=== PATIENT | female | born 1985 | race Native Hawaiian/Other Pacific Islander ===

== ENCOUNTER 2018-01-19 21:36 | Emergency (ER) | payer OTHER ==
[2018-01-20 04:39] LABS: HCG, SERUM QUANTITATIVE 76841 MIU/ML
== END 2018-01-20 05:08 | disposition home or self-care (01) ==
LOC: M ED 21:36
DX: O20.8 Other hemorrhage in early pregnancy (principal); O26.30 Retained intrauterine contraceptive device in pregnancy, unspecified trimester; Z3A.09 9 weeks gestation of pregnancy; Z79.899 Other long term (current) drug therapy
CPT/HCPCS: 76801

== ENCOUNTER 2018-01-24 06:07 | Emergency (ER) | payer OTHER ==
[2018-01-24 06:41] LABS: BASO % 0.3 % (0.0-1.0); EOS # 0.1 10^3/uL (0.0-0.50); EOS % 0.7 % (0.0-3.0); HEMATOCRIT 35.9 % (36.0-47.0); HEMOGLOBIN 12.8 g/dl (12.0-15.5); IMMATURE GRANULOCYTE % 0.3 % (0-3.0); LYMPH # 1.2 10^3/uL (1.5-4.5); LYMPH % 13.7 % (24.0-44.0); MEAN CORPUSCULAR HEMOGLOBIN 30.4 pg (27.0-33.0); MEAN CORPUSCULAR HGB CONC 35.7 g/dl (32.0-36.5); MEAN CORPUSCULAR VOLUME 85.3 fl (80.0-96.0); MONO # 0.8 10^3/uL (0.0-0.8); MONO % 8.8 % (0.0-5.0); NEUTROPHILS # 6.9 10^3/uL (1.8-7.7); NEUTROPHILS % 76.2 % (36.0-66.0); PLATELET COUNT, AUTOMATED 261 10^3/uL (150-450); RED BLOOD COUNT 4.21 10^6/uL (4.00-5.40); WHITE BLOOD COUNT 9.1 10^3/uL (4.0-10.0)
[2018-01-24 07:22] LABS: HCG, SERUM QUANTITATIVE 72114 MIU/ML
== END 2018-01-24 11:14 | disposition home or self-care (01) ==
LOC: M ED 06:07
DX: O20.0 Threatened abortion (principal); O99.011 Anemia complicating pregnancy, first trimester; O99.89 Other specified diseases and conditions complicating pregnancy, childbirth and the puerperium; R51 Headache; O20.8 Other hemorrhage in early pregnancy; O26.30 Retained intrauterine contraceptive device in pregnancy, unspecified trimester; Z3A.10 10 weeks gestation of pregnancy; O36.8310 Maternal care for abnormalities of the fetal heart rate or rhythm, first trimester, not applicable or unspecified; Z79.899 Other long term (current) drug therapy
CPT/HCPCS: 76801

== ENCOUNTER 2018-01-25 16:19 | Inpatient (IN) | payer OTHER ==
[2018-01-25] MEDS: DOXYCYCLINE HYCLATE 100 MG TAB PO ×2 (01:20→22:00)
[2018-01-25 16:59] LABS: BASO % 0.2 % (0.0-1.0); HEMATOCRIT 34.9 % (36.0-47.0); HEMOGLOBIN 12.6 g/dl (12.0-15.5); IMMATURE GRANULOCYTE % 0.4 % (0-3.0); LYMPH # 0.5 10^3/uL (1.5-4.5); LYMPH % 4.8 % (24.0-44.0); MEAN CORPUSCULAR HEMOGLOBIN 30.1 pg (27.0-33.0); MEAN CORPUSCULAR HGB CONC 36.1 g/dl (32.0-36.5); MEAN CORPUSCULAR VOLUME 83.3 fl (80.0-96.0); MONO # 0.3 10^3/uL (0.0-0.8); MONO % 2.6 % (0.0-5.0); NEUTROPHILS # 9.2 10^3/uL (1.8-7.7); PLATELET COUNT, AUTOMATED 197 10^3/uL (150-450); RED BLOOD COUNT 4.19 10^6/uL (4.00-5.40); RED CELL DISTRIBUTION WIDTH 11.8 % (11.5-14.5)
[2018-01-25 17:15] LABS: ANION GAP 13 MEQ/L (8-16); BLOOD UREA NITROGEN 5 MG/DL (7-18); CALCIUM LEVEL 8.6 MG/DL (8.5-10.1); CARBON DIOXIDE LEVEL 21 MEQ/L (21-32); CHLORIDE LEVEL 96 MEQ/L (98-107); CREATININE FOR GFR 0.81 MG/DL (0.55-1.30); GLOMERULAR FILTRATION RATE > 60.0 (>60); GLUCOSE, FASTING 107 MG/DL (70-100); POTASSIUM SERUM 3.3 MEQ/L (3.5-5.1); SODIUM LEVEL 130 MEQ/L (136-145)
[2018-01-25] MEDS: NS 1,000 ML IV (17:25)
[2018-01-25] MEDS: MORPHINE 4 MG/ML 1ML VIAL/SYRINGE (J2270) IV ×2 (17:25→20:01)
[2018-01-25] MEDS: METOCLOPRAMIDE INJ 10MG/2ML VIAL (J2765) IV (17:29)
[2018-01-25 17:57] LABS: BILIRUBIN, URINE MANUAL NEGATIVE (NEGATIVE); BLOOD URINE MANUAL RFX POSITIVE (NEGATIVE); GLUCOSE, URINE (UA) MANUAL NEGATIVE (NEGATIVE); KETONE, URINE MANUAL NEGATIVE (NEGATIVE); MICROSCOPIC INDICATED? RFX YES (NO); NITRITE, URINE MANUAL RFX NEGATIVE (NEGATIVE); PROTEIN, URINE MANUAL REFLEX 3+ mg/dL (NEGATIVE); SP GRAVITY,URINE MANUAL REFLEX 1.015 (1.002-1.035); UROBILINOGEN, URINE MANUAL NORMAL (NORMAL)
[2018-01-25 17:59] LABS: BACTERIA, URINE SMALL AMOUNT; RBC, URINE TNTC /hpf (0-3); SQUAMOUS EPITHELIAL CELL URINE MOD AMOUNT /hpf (SMALL AMT); WBC, URINE MAN RFX TNTC /hpf (0-3)
[2018-01-25 18:01] LABS: HYALINE CAST, URINE NONE SEEN /lpf (0-1); MICROSCOPIC EXAM PERFORMED; MUCUS, URINE SMALL AMOUNT (NEGATIVE)
[2018-01-25 18:03] LABS: ALBUMIN 3.2 GM/DL (3.2-5.2); ALBUMIN/GLOBULIN RATIO 0.67 (1.00-1.93); ALKALINE PHOSPHATASE 78 U/L (45-117); ALT/SGPT 33 U/L (12-78); AMYLASE 58 U/L (25-115); AST/SGOT 24 U/L (7-37); BILIRUBIN,DIRECT 0.2 MG/DL (0.0-0.2); BILIRUBIN,TOTAL 0.5 MG/DL (0.2-1.0); C REACTIVE PROTEIN QUANTITATIV 5.54 MG/DL (0.00-0.30); HCG, SERUM QUANTITATIVE 62424 MIU/ML; LIPASE 68 U/L (73-393)
[2018-01-25] MEDS: cefTRIAXone SOD 1 GM in D5W MINI-BAG PLUS 50 ML IV (19:30)
[2018-01-25] MEDS: ACETAMINOPHEN 325 MG TAB PO (20:01)
[2018-01-25] MEDS ORDERED: PROPOFOL 200 MG/20 ML VIAL As Ordered (21:56)
[2018-01-25] MEDS ORDERED: SUCCINYLCHOLINE 100 MG/5 ML SYRINGE (J0330) As Ordered (21:56)
[2018-01-25] MEDS ORDERED: ROCURONIUM BROMIDE 50 MG/5 ML VIAL As Ordered (21:57)
[2018-01-25] MEDS ORDERED: KETOROLAC 60 MG/2 ML VIAL (J1885) As Ordered (21:57)
[2018-01-25] MEDS ORDERED: dexameTHASONE 4 MG/ML 1ML VIAL (J1100) As Ordered (21:57)
[2018-01-25] MEDS ORDERED: DOXYCYCLINE HYCLATE 100 MG TAB As Ordered (21:57)
[2018-01-25] MEDS ORDERED: LIDOCAINE 2% INJ 100 MG/5 ML SDV (FOR ANES.) As Ordered (21:57)
[2018-01-25] MEDS ORDERED: ONDANSETRON 4MG/2ML VIAL (J2405) As Ordered (21:58)
[2018-01-25] MEDS ORDERED: METOCLOPRAMIDE INJ 10MG/2ML VIAL (J2765) As Ordered (21:58)
[2018-01-25] MEDS ORDERED: fentaNYL 100 MCG/2 ML INJECTION (J3010) As Ordered ×2 (21:58→22:53)
[2018-01-25] MEDS ORDERED: MIDAZOLAM INJ 2 MG/2 ML VIAL (J2250) As Ordered (21:59)
[2018-01-25] MEDS ORDERED: ONDANSETRON 4MG/2ML VIAL (J2405) IV ×2 (22:00→23:30)
[2018-01-25] MEDS ORDERED: DOCUSATE SODIUM 100 MG CAP PO (22:00)
[2018-01-25] MEDS: miSOPROStol 200 MCG TAB (S0191) As Ordered (23:12)
[2018-01-25] MEDS ORDERED: HYDROMORPHONE HCL 0.5 MG/ 0.5 ML SYRINGE (J1170 PER 1) IV (23:30)
[2018-01-25] MEDS ORDERED: PERCOCET 5MG/325MG TAB PO (23:30)
[2018-01-25] MEDS ORDERED: fentaNYL 100 MCG/2 ML INJECTION (J3010) IV (23:30)
[2018-01-25] MEDS ORDERED: MORPHINE 4 MG/ML 1ML VIAL/SYRINGE (J2270) IV (23:45)
[2018-01-25] MEDS ORDERED: IBUPROFEN 800 MG TAB PO (23:45)
[2018-01-25] MEDS ORDERED: DOXYCYCLINE HYCLATE 100 MG TAB PO (23:45)
[2018-01-26] MEDS: LR 1,000 ML IV ×4 (00:10→20:33)
[2018-01-26] MEDS: DOXYCYCLINE HYCLATE 100 MG TAB PO (01:20)
[2018-01-26] MEDS: CLINDAMYCIN 900 MG in APPROPRIATE DILUENT 1 EA IV ×3 (05:50→22:06)
[2018-01-26] MEDS: GENTAMICIN 400 MG in D5W 100 ML IV (07:03)
[2018-01-26 08:27] LABS: HEMATOCRIT 29.5 % (36.0-47.0); MEAN CORPUSCULAR HEMOGLOBIN 30.2 pg (27.0-33.0); MEAN CORPUSCULAR HGB CONC 35.6 g/dl (32.0-36.5); MEAN CORPUSCULAR VOLUME 84.8 fl (80.0-96.0); PLATELET COUNT, AUTOMATED 162 10^3/uL (150-450); RED BLOOD COUNT 3.48 10^6/uL (4.00-5.40); RED CELL DISTRIBUTION WIDTH 12.1 % (11.5-14.5)
[2018-01-26 08:31] LABS: HEMOGLOBIN 10.5 g/dl (12.0-15.5)
[2018-01-26 17:22] LABS: APPEARANCE, URINE HAZY (CLEAR); BACTERIA, URINE AUTO NEGATIVE (NEGATIVE); BILIRUBIN, URINE AUTO NEGATIVE (NEGATIVE); BLOOD, URINE BLOOD 3+ (NEGATIVE); COLOR, URINE YELLOW (YELLOW); GLUCOSE, URINE (UA) AUTO NEGATIVE (NEGATIVE); KETONE, URINE AUTO NEGATIVE (NEGATIVE); LEUKOCYTE ESTERASE, URINE AUTO TRACE (NEGATIVE); NITRITE, URINE AUTO NEGATIVE (NEGATIVE); PROTEIN, URINE AUTO NEGATIVE (NEGATIVE); RBC, URINE AUTO 45 /HPF (0-3); SPECIFIC GRAVITY URINE AUTO 1.006 (1.002-1.035); SQUAMOUS EPITHELIAL CELL UR AU 1 /HPF (0-6); TRANSITIONAL EPITHELIAL AUTO <1 /HPF; UROBILINOGEN, URINE AUTO 0.2 mg/dL (0.0-2.0); WBC, URINE AUTO 14 /HPF (0-3)
[2018-01-26 17:28] LABS: AMPHETAMINES URINE REFLEX NEGATIVE (NEGATIVE); BARBITURATES URINE REFLEX NEGATIVE (NEGATIVE); BENZODIAZEPINES URINE REFLEX NEGATIVE (NEGATIVE); CANNABINOIDS URINE REFLEX NEGATIVE (NEGATIVE); COCAINE METABOLITE URINE REFLE NEGATIVE (NEGATIVE); METHADONE URINE REFLEX NEGATIVE (NEGATIVE); OPIATES URINE REFLEX NEGATIVE (NEGATIVE); PHENCYCLIDINE URINE REFLEX NEGATIVE (NEGATIVE)
[2018-01-27] MEDS: CLINDAMYCIN 900 MG in APPROPRIATE DILUENT 1 EA IV ×3 (05:06→22:38)
[2018-01-27] MEDS ORDERED: diphenhydrAMINE INJ 50MG/ML VIAL (J1200) IV (06:45)
[2018-01-27] MEDS: GENTAMICIN 400 MG in D5W 100 ML IV (06:50)
[2018-01-27] MEDS: LR 1,000 ML IV ×3 (06:51→17:28)
[2018-01-27 07:32] LABS: HEMATOCRIT 26.1 % (36.0-47.0); HEMOGLOBIN 9.2 g/dl (12.0-15.5); MEAN CORPUSCULAR HEMOGLOBIN 30.5 pg (27.0-33.0); MEAN CORPUSCULAR HGB CONC 35.2 g/dl (32.0-36.5); MEAN CORPUSCULAR VOLUME 86.4 fl (80.0-96.0); PLATELET COUNT, AUTOMATED 168 10^3/uL (150-450); RED BLOOD COUNT 3.02 10^6/uL (4.00-5.40); RED CELL DISTRIBUTION WIDTH 12.5 % (11.5-14.5); WHITE BLOOD COUNT 11.1 10^3/uL (4.0-10.0)
[2018-01-27 20:12] LABS: HEMATOCRIT 29.6 % (36.0-47.0); HEMOGLOBIN 10.4 g/dl (12.0-15.5); MEAN CORPUSCULAR HEMOGLOBIN 30.5 pg (27.0-33.0); MEAN CORPUSCULAR HGB CONC 35.1 g/dl (32.0-36.5); MEAN CORPUSCULAR VOLUME 86.8 fl (80.0-96.0); PLATELET COUNT, AUTOMATED 241 10^3/uL (150-450); RED BLOOD COUNT 3.41 10^6/uL (4.00-5.40); RED CELL DISTRIBUTION WIDTH 12.7 % (11.5-14.5); WHITE BLOOD COUNT 7.7 10^3/uL (4.0-10.0)
[2018-01-27 20:38] LABS: ALBUMIN 2.8 GM/DL (3.2-5.2); ALBUMIN/GLOBULIN RATIO 0.76 (1.00-1.93); ALKALINE PHOSPHATASE 65 U/L (45-117); ALT/SGPT 27 U/L (12-78); ANION GAP 6 MEQ/L (8-16); AST/SGOT 15 U/L (7-37); BILIRUBIN,TOTAL 0.2 MG/DL (0.2-1.0); BLOOD UREA NITROGEN 10 MG/DL (7-18); CALCIUM LEVEL 8.5 MG/DL (8.5-10.1); CARBON DIOXIDE LEVEL 27 MEQ/L (21-32); CHLORIDE LEVEL 106 MEQ/L (98-107); CREATININE FOR GFR 0.57 MG/DL (0.55-1.30); GLOMERULAR FILTRATION RATE > 60.0 (>60); GLUCOSE, FASTING 80 MG/DL (70-100); POTASSIUM SERUM 3.6 MEQ/L (3.5-5.1); SODIUM LEVEL 139 MEQ/L (136-145); TOTAL PROTEIN 6.5 GM/DL (6.4-8.2)
[2018-01-27] MEDS: ACETAMINOPHEN TAB 650MG DOSE (2X325MG) PO (22:29)
[2018-01-28] MEDS: LR 1,000 ML IV (02:09)
[2018-01-28] MEDS: GENTAMICIN 400 MG in D5W 100 ML IV (05:10)
[2018-01-28] MEDS: CLINDAMYCIN 900 MG in APPROPRIATE DILUENT 1 EA IV (06:28)
== END 2018-01-29 09:56 | disposition home or self-care (01) | DRG 770 ==
LOC: M PED 01-26 00:16 → M MSPAV 01-27 21:18 → M ED 16:19 → M ED INP 21:54
PROC: 10D17ZZ Extraction of Products of Conception, Retained, Via Natural or Artificial Opening (ICD-10-PCS; principal; 2018-01-25 22:17)
DX: O03.87 Sepsis following complete or unspecified spontaneous abortion (principal); R41.0 Disorientation, unspecified

== ENCOUNTER 2018-06-01 11:28 | Emergency (ER) | payer OTHER ==
[2018-06-01 13:00] LABS: KETONE, URINE AUTO RFX NEGATIVE (NEGATIVE); LEUKOCYTE ESTERASE UR AUTO RFX NEGATIVE (NEGATIVE); MUCUS, URINE RFX SMALL (NEGATIVE); NITRITE, URINE AUTO RFX NEGATIVE (NEGATIVE); RBC, URINE AUTO RFX 0 /HPF (0-3); SPECIFIC GRAVITY UR AUTO RFX 1.018 (1.002-1.035); SQUAM EPITHELIAL CELL UR AURFX 2 /HPF (0-6); WBC, URINE AUTO RFX 0 /HPF (0-3)
[2018-06-01 13:05] LABS: HCG, SERUM QUANTITATIVE 159401 MIU/ML
== END 2018-06-01 14:07 | disposition home or self-care (01) ==
LOC: M ED 11:28
DX: O26.899 Other specified pregnancy related conditions, unspecified trimester (principal); R10.2 Pelvic and perineal pain
CPT/HCPCS: 76801

== ENCOUNTER 2018-07-24 19:55 | Outpatient (CLI) | payer OTHER ==
[2018-07-24] MEDS: LIDOCAINE VISCOUS 2% SOLN 15ML UDC PO (20:46)
[2018-07-24] MEDS: MAALOX 30 ML SUSP *UDC PO (20:46)
== END 2018-07-24 21:36 | disposition home or self-care (01) ==
LOC: M LDO 19:55
DX: O99.89 Other specified diseases and conditions complicating pregnancy, childbirth and the puerperium (principal); R10.12 Left upper quadrant pain; Z3A.20 20 weeks gestation of pregnancy
CPT/HCPCS: G0463

== ENCOUNTER 2018-10-17 11:40 | Outpatient (CLI) | payer OTHER ==
[~2018-10-17] VITALS: Ht 162.6 cm; Wt 100.8 kg
[~2018-10-17 11:40] MED LIST: PRENTAB16 PO
[2018-10-17 12:12] VITALS: BP 111/63
== END 2018-10-17 12:50 | disposition home or self-care (01) ==
LOC: M LDO 11:40
PROVIDERS: ATTEND Obstetrics & Gynecology
DX: O26.893 Other specified pregnancy related conditions, third trimester (principal); Z3A.31 31 weeks gestation of pregnancy; R10.9 Unspecified abdominal pain; R51 Headache; R42 Dizziness and giddiness
CPT/HCPCS: 59025; G0378; G0463

== ENCOUNTER 2018-11-09 17:37 | Inpatient (IN) | payer OTHER ==
[~2018-11-09] VITALS: Ht 162.6 cm; Wt 104.5 kg
[2018-11-09 17:50] VITALS: BP 129/58
--- NOTE | 2018-11-09 18:24 | REP ---
Clinical: Pelvic pain. Technique: Portable AP view of the pelvis. Findings: Intrauterine noted. Monitoring device overlies the pelvis. The osseous structures are grossly intact without obvious acute fracture or dislocation/subluxation. Impression: Limited examination without evidence for acute fracture or dislocation/subluxation. Electronically Signed by Van Jason MD 11/09/2018 06:16 P
[2018-11-09] MEDS ORDERED: LACTATED RINGER'S 1000 ML IV STA (18:29)
[2018-11-09] MEDS: BUTORPHANOL 2 MG/ML INJ (J0595) IV PRN ×2 (18:30→22:37)
[2018-11-09 18:31] LABS: HEMATOCRIT 33.8 % (36.0-47.0); HEMOGLOBIN 11.6 g/dl (12.0-15.5); MEAN CORPUSCULAR HGB CONC 34.3 g/dl (32.0-36.5); MEAN CORPUSCULAR VOLUME 84.5 fl (80.0-96.0); PLATELET COUNT, AUTOMATED 232 10^3/uL (150-450); WHITE BLOOD COUNT 10.4 10^3/uL (4.0-10.0)
[2018-11-09 18:43] LABS: INR 0.97
[2018-11-09 18:44] LABS: PARTIAL THROMBOPLASTIN TIME 26.4 SECONDS (25.4-37.6)
[2018-11-09] MEDS: LR 1,000 ML IV SCH ×2 (19:15→22:45)
[2018-11-09 19:37] VITALS: BP 133/56
[2018-11-09 21:02] VITALS: BP 140/72
[2018-11-09 22:40] VITALS: BP 125/57
[2018-11-10] VITALS (8 sets, daily range): BP systolic 106–134; BP diastolic 55–71
--- NOTE | 2018-11-10 02:35 | IPNPDOC ---
Text Note Date of Service The patient was seen on 11/10/18. NOTE Little is a 33yo with SIUP at 35w2d who presented to L&D triage in im mense pain after having fallen getting out of the bathtub, her foot slipping out from under her, and landing directly on her vaginal area on the edge of the tub full force. Her two friends had to carry her to the car because she could not stand or walk. She arrived to L&D in a wheelchair and could not stand up to move over to the bed. No vaginal bleeding, no LOF, she did not endorse feeling ctx on arrival. She feels good movement. ROS: no f/c/n/v/CP/SOB History: PMhx: benign positional vertigo, Class 1 obesity (starting BMI 30.9) Ob: uncomplicated term x3 in 2004, 2006, 2012. early 2017, D&C. History of PP depression [employer]: no abnormal pap/STD, last pap ASCUS HPV neg December 2015 Surgeries: D&C, wisdom teeth Meds: PNV Allergies: NKDA Vitals wnl, afebrile General: WDWN, obese, gravid, in acute pain/distress Abdomen: soft, NTTP in all quadrants, no fundal tenderness Back: no pain with palpation along spine or lower lumbar region Pelvis: exquisite tenderness with palpation over the mons pubis, no obvious crepitus. Labia without swelling or contusion. No blood at introitus. Assisted RN with reyes catheter placement SCE: 1/thick/high Extremities: movement of legs causes immense pain in patient's pelvis and she cannot move them herself due to pain, no bruising or e/o trauma Cat I FHRT with mod erin, +accels, -decels [place]: ctx q1-2min appears consistent with uterine irritability Labs: 11/09 MBT A pos, ab neg KB 0.000 CBC: WBC 10.4, H/H 11.6/33.8, plt 232 PT 13, PTT 26.4, INR 0.97, fibrinogen 483 Radiology 11/09: Pelvic x-ray AP Limited examination without evidence for acute fracture or dislocation/subluxation. Assessment: Little is a 33yo with SIUP at 35w2d with straddle fall but no evidence of any pelvic fracture/dislocation/subluxation and no evidence of placental abruption, but having exquisite pain with palpation over mons pubis an d inability to stand/walk secondary to pain. She is kendra, but does not feel ctx and SCE 1/thick/high, no vaginal bleeding. Abruption labs negative. Vitals wnl. Reassuring status. Plan: -Observation on L&D, may have to change to admission depending on patient's pain resolution -reyes catheter was placed since patient cannot currently ambulate secondary to pain -CEFM with toco for now -stadol 2mg q4hr prn pain -regular diet -will get physical therapy to assist with attempt at ambulation today -may need walker Dr. Chantale Cruz MD VS,Tyler, I+O VS, Tyler, I+O Laboratory Tests 11/09/18 18:14 Red Blood Count 4.00, Mean Corpuscular Volume 84.5, Mean Corpuscular Hemoglobin 29.0, Mean Corpuscular Hemoglobin Concent 34.3, Red Cell Distribution Width 13.3 Vital Signs Date Time Temp Pulse Resp B/P (MAP) Pulse Ox O2 Delivery O2 Flow Rate FiO2 11/10/18 00:14 97.4 67 18 134/59 (84) I&O- Last 24 Hours up to 6 AM 11/10/18 06:00 Intake Total 1292 ml Output Total 550 ml Balance 742 ml Chantale Cruz MD Nov 10, 2018 02:35
[2018-11-10] MEDS: LR 1,000 ML IV SCH (04:36)
[2018-11-10] MEDS: BUTORPHANOL 2 MG/ML INJ (J0595) IV PRN (05:08)
--- NOTE | 2018-11-10 07:54 | HPEPDOC ---
Obstetrical History & Physical General Date of Admission History of Present Illness H&P Little is a 33yo with SIUP at 35w2d who presented to L&D triage in immense pain after having fallen getting out of the bathtub, her foot slipping out from under her, and landing directly on her vaginal area on the edge of the tub full force. Her two friends had to carry her to the car because she could not stand or walk. She arrived to L&D in a wheelchair and could not stand up to move over to the bed. No vaginal bleeding, no LOF, she did not endorse feeling ctx on arrival. She feels good movement. ROS: no f/c/n/v/CP/SOB History: PMhx: benign positional vertigo, Class 1 obesity (starting BMI 30.9) Ob: uncomplicated term x3 in 2004, 2006, 2012. early 2017, D&C. 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 Labia without swelling or contusion. No blood at introitus. Assisted RN with reyes catheter placement SCE: 1/thick/high Extremities: movement of legs causes immense pain in patient's pelvis and she cannot move them herself due to pain, no bruising or e/o trauma Cat I FHRT with mod erin, +accels, -decels [place]: ctx q1-2min appears consistent with uterine irritability Labs: 11/09 MBT A pos, ab neg KB 0.000 CBC: WBC 10.4, H/H 11.6/33.8, plt 232 PT 13, PTT 26.4, INR 0.97, fibrinogen 483 Radiology 11/09: Pelvic x-ray AP Limited examination without evidence for acute fracture or dislocation/subluxation. Assessment: Little is a 33yo with SIUP at 35w2d with straddle fall but no evidence of any pelvic fracture/dislocation/subluxation and no evidence of placental abruption, but having exquisite pain with palpation over mons pubis and inability to stand/walk secondary to pain. She is kendra, but does not feel ctx and SCE 1/thick/high, no vaginal bleeding. Abruption labs negative. Vitals wnl. Reassuring status. Plan: -Admit to L&D -reyes catheter was placed since patient cannot currently ambulate secondary to pain -CEFM with toco for now -stadol 2mg q4hr prn pain -regular diet -will get physical therapy to assist with attempt at ambulation today -may need walker Dr. Chantale Cruz MD Past Medical History Allergies Coded Allergies: No Known Allergies (Unverified , 01/25/18) Medications Scheduled Multivitamins/ ( Complete 14-0.4 mg) 1 Tab Tab, 1 TAB PO DAILY Physical Examination Vital Signs/I&O Vital Signs Date Time Temp Pulse Resp B/P (MAP) Pulse Ox O2 Delivery O2 Flow Rate FiO2 11/10/18 05:25 16 11/10/18 05:06 98.1 71 119/55 (76) I&O- Last 24 Hours up to 6 AM 11/10/18 06:00 Intake Total 2254 ml Output Total 1675 ml Balance 579 ml Laboratory Data 24H LABS Laboratory Tests 2 11/09/18 18:14: Nucleated Red Blood Cells % (auto) 0.0, Prothrombin Time 13.0, Prothromb Time International Ratio 0.97, Activated Partial Thromboplast Time 26.4, Fibrinogen 483H CBC/BMP Laboratory Tests 11/09/18 18:14 Red Blood Count 4.00, Mean Corpuscular Volume 84.5, Mean Corpuscular Hemoglobin 29.0, Mean Corpuscular Hemoglobin Concent 34.3, Red Cell Distribution Width 13.3 Assessment/Plan Assessment See HPI for assessment and plan Chantale Cruz MD Nov 10, 2018 07:54
[2018-11-10] MEDS: PERCOCET 5MG/325MG TAB PO PRN ×4 (09:44→21:37)
--- NOTE | 2018-11-10 18:48 | IPNPDOC ---
Text Note Date of Service The patient was seen on 11/10/18. NOTE SBAR from Dr Cruz this AM at 0730. No complaints of VB/LOF or ctx's. Pos FM. Pt evaluated by P.T. this afternoon and they gave her a walker and also a bedside comode. She was able to get to the BR X2 as of this note. Her Ryan has obviously been removed and NST was Cat 1 as of 1230, no reg ctx's. She has a saline lock because she is drinking well and voiding well. Pain controlled but only with regular q 4 hrs Percocet, 2 tabs. Plan is for her to be able to ambulate (even if requires a walker), go to the bathroom, and care for herself prior to discharge. NST qday. SBAR to Dr Parra at 1930. Sessions VS,Tyler, I+O VSTyler I+O Vital Signs Date Time Temp Pulse Resp B/P (MAP) Pulse Ox O2 Delivery O2 Flow Rate FiO2 11/10/18 17:33 18 11/10/18 11:28 80 129/70 (89) 11/10/18 09:05 97.9 I&O- Last 24 Hours up to 6 AM 11/10/18 06:00 Intake Total 2254 ml Output Total 1675 ml Balance 579 ml LEW ROWLEY MD Nov 10, 2018 18:48
[2018-11-11] MEDS: PERCOCET 5MG/325MG TAB PO PRN ×2 (04:06→08:43)
[2018-11-11 04:09] VITALS: BP 115/55
--- NOTE | 2018-11-11 07:19 | IPNPDOC ---
Text Note Date of Service The patient was seen on 11/11/18. NOTE 33 yo at 35+3 weeks gestation admitted for pain control after a straddle fall getting out of the bath tub at home. No evidence of fracture, subluxation, or dislocation of the pelvis. Pain was severe and she required parenteral analgesics upon initial admission. No obstetric issues. She has been transitioned to percocet as of yesterday. She was seen and evaluated by PT and given a walker. Little reports feeling better this AM. She has been able to use her walker to use the toilet. Her pain is better, but she still cannot move without percocet on board. She denies any vaginal bleeding, contractions, leakage of fluid, or d ecreased movement. Vitals - VSS, afebrile, normotensive, non tachycardic General - Patient sleeping but easily aroused. Did not have patient ambulate or inspect Gait. Abdomen - Gravid uterus. Little appears to be getting better, though is still requiring scheduled percocet. Her ambulation has improved and she feels more confident with walking. Will see how the morning and afternoon goes. If she is able to perform all activities of daily living and feels comfortable doing so, she may be a candidate for discharge home later today. DO SIERRA Parra,Tyler, I+O VS, Tyler, I+O Vital Signs Date Time Temp Pulse Resp B/P (MAP) Pulse Ox O2 Delivery O2 Flow Rate FiO2 11/11/18 04:36 18 11/11/18 04:09 97.9 80 115/55 (75) I&O- Last 24 Hours up to 6 AM 11/11/18 06:00 Intake Total 2045 ml Output Total 2450 ml Balance -405 ml BETSY PARRA DO Nov 11, 2018 07:19
[2018-11-11 09:16] VITALS: BP 132/62
[2018-11-11] MEDS ORDERED: OXYC1TAB23 PO (11:08)
--- NOTE | 2018-11-11 11:09 | IPNPDOC ---
Text Note Date of Service The patient was seen on 11/11/18. NOTE ADMITTING DIAGNOSES: 35 weeks , straddle injury DISCHARGE DIAGNOSES: Same HOSPITAL COURSE: Admitted and maintained on around the clock percocet. Abruption labs negative. Saw Physical Therapy both days while admitted and they agreed she was ready to go today with walker assistance. Able to get to the bathroom and around with this. No complications while here. DISCHARGE MEDICATIONS: Percocet as needed. DISCHARGE INSTRUCTIONS: Continue to walk and move, do not remain sedentary. F/U in 3 days on WED. Sessions VS,Tyler, I+O VSTyler, I+O Vital Signs Date Time Temp Pulse Resp B/P (MAP) Pulse Ox O2 Delivery O2 Flow Rate FiO2 11/11/18 09:16 99.0 86 18 132/62 I&O- Last 24 Hours up to 6 AM 11/11/18 06:00 Intake Total 2045 ml Output Total 2450 ml Balance -405 ml SESSIONS,LEW Cohen MD Nov 11, 2018 11:09
--- NOTE | 2018-11-11 11:11 | DS.PDOC ---
Discharge Summary General Date of Admission Nov 10, 2018 at 08:59 Date of Discharge [id number] Discharge Summary ADMITTING DIAGNOSES: 35 weeks , straddle injury DISCHARGE DIAGNOSES: Same HOSPITAL COURSE: Admitted and maintained on around the clock percocet. Abruption labs negative. Saw Physical Therapy both days while admitted and they agreed she was ready to go today with walker assistance. Able to get to the bathroom and around with this. No complications while here. DISCHARGE MEDICATIONS: Percocet as needed. DISCHARGE INSTRUCTIONS: Continue to walk and move, do not remain sedentary. F/U in 3 days on WED. Sessions Vital Signs/I&Os Vital Signs Date Time Temp Pulse Resp B/P (MAP) Pulse Ox O2 Delivery O2 Flow Rate FiO2 11/11/18 09:16 99.0 86 18 132/62 I&O- Last 24 Hours up to 6 AM 11/11/18 06:00 Intake Total 2045 ml Output Total 2450 ml Balance -405 ml Discharge Medications Scheduled Multivitamins/ ( Complete 14-0.4 mg) 1 Tab Tab, 1 TAB PO DAILY, (Reported) Scheduled PRN Oxycodone/Acetaminophen (Oxycodone/Acetaminophen 5-325 mg) 1 Tab Tab, 1-2 TAB PO Q4-6HOURS PRN for PAIN, (Reported) PER SESSIONS: MAY TAKE 1-2 TABLETS OF PERCOCET EVERY 4-6 HOURS ONLY NEEDED. TYLENOL IS OKAY TO TAKE, BUT DO NOT TAKE TYLENOL AND PERCOCET TOGETHER BECAUSE PERCOCET HAS TYLENOL IN IT. MAXIMUM DAILY DOSE OF TYLENOL IS 4000 MG (4 GRAMS) IN A 24 HOUR PERIOD. Allergies Coded Allergies: No Known Allergies (Unverified , 01/25/18) SESSIONS,LEW Cohen MD Nov 11, 2018 11:11
== END 2018-11-11 13:20 | disposition home or self-care (01) | DRG 833 ==
LOC: M LDO 17:37 → M LDI 11-10 08:59
PROVIDERS: ADMIT Obstetrics & Gynecology; ATTEND Obstetrics & Gynecology
DX: O9A.213 Injury, poisoning and certain other consequences of external causes complicating pregnancy, third trimester (principal); S39.94XA Unspecified injury of external genitals, initial encounter; W18.2XXA Fall in (into) shower or empty bathtub, initial encounter; Y92.009 Unspecified place in unspecified non-institutional (private) residence as the place of occurrence of the external cause; O99.213 Obesity complicating pregnancy, third trimester; Z68.30 Body mass index [BMI] 30.0-30.9, adult; Z3A.35 35 weeks gestation of pregnancy; E66.9 Obesity, unspecified

== ENCOUNTER 2018-11-30 08:47 | Outpatient (CLI) | payer OTHER ==
[~2018-11-30] VITALS: Ht 162.6 cm; Wt 103.6 kg
[~2018-11-30 08:47] MED LIST changes: +OXYC1TAB23 PO
[2018-11-30 09:10] VITALS: BP 104/67
[2018-11-30] MEDS ORDERED: LACTATED RINGER'S 1000 ML IV STA (09:15)
[2018-11-30] MEDS ORDERED: TERBUTALINE SULFATE 1 MG/ML VIAL (J3105) SC ONE (09:45)
[2018-11-30 10:00] LABS: HEMATOCRIT 34.4 % (36.0-47.0); HEMOGLOBIN 11.7 g/dl (12.0-15.5); MEAN CORPUSCULAR VOLUME 85.1 fl (80.0-96.0); PLATELET COUNT, AUTOMATED 245 10^3/uL (150-450); RED BLOOD COUNT 4.04 10^6/uL (4.00-5.40); WHITE BLOOD COUNT 8.1 10^3/uL (4.0-10.0)
[2018-11-30 10:04] VITALS: BP 104/67
[2018-11-30 11:52] VITALS: BP 108/64
[2018-11-30 12:38] VITALS: BP 99/63
--- NOTE | 2018-11-30 12:40 | IPNPDOC ---
Text Note Date of Service The patient was seen on 11/30/18. NOTE ECV attempt Little is a 33 yo at 38+1 weeks gestation who presents to L&D for an ECV attempt due to breech presentation. complicated by obesity. Vitals - VSS, afebrile, normotensive, non tachycardic General - AAOX3, sitting up in bed, NAD Abdomen - Gravid uterus, no fundal tenderness Bedside TAUS - Castro breech presentation of fetus. LIZABETH 12.2cm before ECV attempt. Anterior placenta. FHR tracing before ECV - Reactive NST Little was counseled on all risks and benefits of ECV vs scheduling of PLTCS. We discussed risks of ECV to include rupturing membranes, placental abruption, or distress that could require emergent delivery. We also discussed failure of the procedure. After counseling she desired to proceed with ECV attempt. Consent form signed with RN witness present. The patient was given terbutaline before the procedure. In addition, an IV was placed, a fluid bolus was given, and a CBC and Type and screen were obtained. Dr. Cruz graciously agreed to assist with the procedure. The patient's abdomen was covered with gel. Dr. Cruz and I then performed the ECV. The head was identified in breech position. With traction the head was attempted to be moved to the cephalic position, as Dr. Cruz applied counter traction to the back and body. Three separate attempts were made to vert the fetus bu all were unsuccessful. Bedside TAUS after procedure attempts revealed fetus in persistent breech presentation. +FCA in the 140s was identified after the procedure. The ECV was thus unsuccessful. FHT tracing after procedure - Reactive NST. Cat I tracing after 1hr of monitoring. ECV attempt with Ms. Orta was unsuccessful. She denied any pain, bleeding, or leakage of fluid after the procedure. Will need to schedule PLTCS, and tentative plan is for [id number]. She will be contacted with scheduling. She will then follow up with me for a pre operative appointment before scheduled PLTCS. Return to care sooner for bleeding, contractions, leakage of fluid, decreased movement, or any other urgent concerns. All patient questions answered. Bob Parra, DO VS,Tyler, I+O VS, [place], I+O Laboratory Tests 11/30/18 09:43 Red Blood Count 4.04, Mean Corpuscular Volume 85.1, Mean Corpuscular Hemoglobin 29.0, Mean Corpuscular Hemoglobin Concent 34.0, Red Cell Distribution Width 13.4 Vital Signs Date Time Temp Pulse Resp B/P (MAP) Pulse Ox O2 Delivery O2 Flow Rate FiO2 11/30/18 11:52 96 108/64 (79) 11/30/18 10:04 97.1 20 97 Room Air BOB PARRA DO Nov 30, 2018 12:40
== END 2018-11-30 12:48 | disposition home or self-care (01) ==
LOC: M LDO 08:47
PROVIDERS: ATTEND Obstetrics & Gynecology
DX: O26.893 Other specified pregnancy related conditions, third trimester (principal); Z3A.38 38 weeks gestation of pregnancy; O99.213 Obesity complicating pregnancy, third trimester
CPT/HCPCS: 59025; 59412; 76815; 85027; 86850; 86900; 86901; 96372; 96374; G0378; G0463; J3105

== ENCOUNTER 2018-12-08 06:53 | Inpatient (IN) | payer OTHER ==
[~2018-12-08] VITALS: Ht 162.6 cm; Wt 103.6 kg
[2018-12-08 07:30] VITALS: BP 144/75
[2018-12-08] MEDS ORDERED: LACTATED RINGER'S 1000 ML IV STA (07:31)
[2018-12-08] MEDS ORDERED: BICITRA 30ML SOLN UDC PO ONE (07:45)
[2018-12-08 08:03] LABS: HEMATOCRIT 36.2 % (36.0-47.0); HEMOGLOBIN 12.2 g/dl (12.0-15.5); MEAN CORPUSCULAR HEMOGLOBIN 28.6 pg (27.0-33.0); MEAN CORPUSCULAR HGB CONC 33.7 g/dl (32.0-36.5); MEAN CORPUSCULAR VOLUME 84.8 fl (80.0-96.0); PLATELET COUNT, AUTOMATED 255 10^3/uL (150-450); RED BLOOD COUNT 4.27 10^6/uL (4.00-5.40); WHITE BLOOD COUNT 9.8 10^3/uL (4.0-10.0)
[2018-12-08] MEDS ORDERED: MORPHINE PRES-FREE INJ 10 MG/10 ML VIAL (J2274) As Ordered ONE (09:30)
[2018-12-08] MEDS ORDERED: ONDANSETRON 4MG/2ML VIAL (J2405) IV PRN ×3 (10:22→12:00)
[2018-12-08] MEDS ORDERED: diphenhydrAMINE INJ 50MG/ML VIAL (J1200) IV PRN (10:22)
[2018-12-08] MEDS ORDERED: NALOXONE INJ 0.4 MG/1 ML VIAL (J2310) IV PRN ×2 (10:22)
[2018-12-08] MEDS ORDERED: NALBUPHINE HCL 10 MG/ML AMP (J2300) IV PRN ×2 (10:22→12:00)
[2018-12-08] MEDS ORDERED: METOCLOPRAMIDE INJ 10MG/2ML VIAL (J2765) IV PRN ×2 (10:22→12:00)
[2018-12-08 11:05] LABS: CORD GAS ABE A -6.5; CORD GAS ABE V -3.9; CORD GAS HCO3 A 22.6 MEQ/L; CORD GAS HCO3 V 21.6 MEQ/L; CORD GAS O2 SAT A 15.5 %; CORD GAS PCO2 A 60.3 mmHg; CORD GAS PCO2 V 40.6 mmHg; CORD GAS PH A 7.192 UNITS; CORD GAS PH V 7.343 UNITS; CORD GAS PO2 A 15.2 mmHg; CORD GAS PO2 V 29.8 mmHg; CORD GAS SBC A 17.4 MEQ/L; CORD GAS SBC V 20.5 MEQ/L; CORD GAS TCO2 A 24.5 MEQ/L; CORD GAS TCO2 V 22.8 MEQ/L
[2018-12-08] MEDS ORDERED: OXYTOCIN INJ 10 UNITS/ML VIAL (J2590) As Ordered ONE (11:23)
[2018-12-08] MEDS ORDERED: PHENYLephrine HCL 500 MCG/5 ML (100MCG/ML) SYRINGE (J2370) As Ordered ONE (11:23)
[2018-12-08] MEDS ORDERED: ePHEDrine SULFATE 25 MG/5 ML(5MG/ML) SYRINGE As Ordered ONE (11:23)
[2018-12-08] MEDS ORDERED: KETOROLAC 60 MG/2 ML VIAL (J1885) As Ordered ONE (11:23)
[2018-12-08] MEDS ORDERED: ONDANSETRON 4MG/2ML VIAL (J2405) As Ordered ONE (11:23)
[2018-12-08] MEDS ORDERED: OXYTOCIN DRIP 30 UNITS in APPROPRIATE DILUENT 1 EA IV SCH (11:34)
[2018-12-08] MEDS ORDERED: PERCOCET 5MG/325MG TAB PO PRN ×2 (11:45→12:00)
[2018-12-08] MEDS ORDERED: MEASLES,MUMPS,RUBELLA VACCINE INJ (MMR-II) (90707) SC SCH (11:45)
[2018-12-08] MEDS ORDERED: RHOGAM 300 MCG (1500 IU) INJ (J2790) IM SCH (11:45)
[2018-12-08] MEDS ORDERED: DOCUSATE SODIUM 100 MG CAP PO PRN (11:45)
[2018-12-08] MEDS ORDERED: OXYTOCIN 30 UNITS IN 0.9% NaCl 500ML IV BAG (J2590) As Ordered ONE (11:50)
[2018-12-08] MEDS ORDERED: METHYLERGONOVINE MALEATE 0.2 MG TAB As Ordered ONE (11:52)
[2018-12-08] MEDS ORDERED: METHYLERGONOVINE MALEATE 0.2 MG TAB PO PRN (12:00)
[2018-12-08] MEDS ORDERED: MEPERIDINE INJ 25 MG/ML VIAL (J2175) IV PRN (12:00)
[2018-12-08] MEDS ORDERED: LR 1,000 ML IV SCH (12:00)
[2018-12-08] MEDS ORDERED: fentaNYL 100 MCG/2 ML INJECTION (J3010) IV PRN (12:00)
[2018-12-08 14:00] VITALS: BP 117/56
[2018-12-08 15:00] VITALS: BP 131/61
[2018-12-08 16:00] VITALS: BP 106/58
[2018-12-08] MEDS: KETOROLAC 30 MG/ML VIAL (J1885) IV SCH ×2 (16:16→22:00)
[2018-12-08 18:00] VITALS: BP 119/66
[2018-12-08] MEDS ORDERED: LR 500 ML IV ONE (19:00)
[2018-12-08 22:18] VITALS: BP 121/66
[2018-12-09 02:00] VITALS: BP 110/58
[2018-12-09] MEDS: KETOROLAC 30 MG/ML VIAL (J1885) IV SCH (05:12)
[2018-12-09 05:57] VITALS: BP 99/55
[2018-12-09 07:47] LABS: HEMATOCRIT 31.2 % (36.0-47.0); MEAN CORPUSCULAR HEMOGLOBIN 28.4 pg (27.0-33.0); MEAN CORPUSCULAR HGB CONC 32.7 g/dl (32.0-36.5); MEAN CORPUSCULAR VOLUME 86.9 fl (80.0-96.0); PLATELET COUNT, AUTOMATED 200 10^3/uL (150-450); RED BLOOD COUNT 3.59 10^6/uL (4.00-5.40); WHITE BLOOD COUNT 11.3 10^3/uL (4.0-10.0)
[2018-12-09] MEDS: PRENATAL VITAMINS CHEWABLE TABLET PO SCH (07:52)
[2018-12-09 08:04] LABS: HEMOGLOBIN 10.2 g/dl (12.0-15.5)
--- NOTE | 2018-12-09 09:15 | IPNPDOC ---
Progress Note Date of Service: Dec 09, 2018 Progress Note Little is a 33 yo G5 now P4 who underwent an uncomplicated scheduled PLTCS yesterday (08Dec2018) for breech presentation after failing an ECV attempt previously. She is currently recovering on the pulido. No acute events overnight. Ms. Paredes reports feeling well this AM. She has mild abdominal soreness but the pain medications are helping. She is tolerating a regular diet. She has ambulated without difficulty. Reyes catheter was just removed. She denies any fevers/chills, SOB, chest pain. She has minimal lochia. Vitals - VSS, normotensive, afebrile, non tachycardic General - AAOX3, sitting up in bed, NAD Abdomen - Fundus firm at U-2. No fundal tenderness. Bandage removed over incision. Incision is clean/dry/intact. Steri strips in place. minimal tenderness to palpation. Extremities - SCDs in place. No edema Urine output - excellent, >100ml/hr Labs: Pre op H/H: 12.2/36.2 --> post op this AM 10.2/31.2 Little is doing well and is making an appropriate recovery. Will monitor for DTV now that reyes removed. Continue regular diet, ambulation, and IS use. Continue routine care. Anticipate DC home tomorrow. Betsy Mitchell, VS, I&O, 24H, Tyler Vital Signs/I&O Vital Signs Date Time Temp Pulse Resp B/P (MAP) Pulse Ox O2 Delivery O2 Flow Rate FiO2 12/09/18 05:57 97.6 66 17 99/55 (70) 97 I&O- Last 24 Hours up to 6 AM 12/09/18 06:00 Intake Total 2400 ml Output Total 2915 ml Balance -515 ml Laboratory Data 24H LABS Laboratory Tests 2 12/08/18 10:55: Cord Arterial Blood pH 7.192, Cord Arterial Blood PCO2 60.3, Cord Arterial Blood PO2 15.2, Cord Arterial Blood HCO3 22.6, Cord Arterial Blood Total CO2 24.5, Cord Arterial Blood Base Excess -6.5, Cord Arterial Base Excess (Standard 17.4, Cord Arterial Bld Oxygen Saturation 15.5, Cord Venous Blood pH 7.343, Cord Venous Blood PCO2 40.6, Cord Venous Blood PO2 29.8, Cord Venous Blood HCO3 21.6, Cord Venous Blood Total CO2 22.8, Cord Venous Base Excess (Actual) -3.9, Cord V enous Base Excess (Standard) 20.5, Cord Venous Blood Oxygen Saturation 67.0 12/09/18 07:23: Nucleated Red Blood Cells % (auto) 0.0 CBC/BMP Laboratory Tests 12/09/18 07:23 Red Blood Count 3.59 L, Mean Corpuscular Volume 86.9, Mean Corpuscular Hemoglobin 28.4, Mean Corpuscular Hemoglobin Concent 32.7, Red Cell Distribution Width 13.2 BETSY MITCHELL DO Dec 09, 2018 09:15
[2018-12-09 10:03] VITALS: BP 111/55
[2018-12-09] MEDS: IBUPROFEN 800 MG TAB PO SCH ×2 (11:41→20:00)
[2018-12-09 14:09] VITALS: BP 114/53
--- NOTE | 2018-12-09 16:23 | RO ---
DATE OF PROCEDURE: 12/08/2018 PREPROCEDURE DIAGNOSIS: breech presentation and failed external cephalic version (ECV) attempt. POSTPROCEDURE DIAGNOSIS: breech presentation and failed external cephalic version (ECV) attempt. PROCEDURE: Primary low transverse section. SURGEON: Dr. Bob Parra COKEMAN: Dr. José Luis Ortiz ANESTHESIA: Spinal. FLUIDS: 1100 mL of lactated Ringer's. URINE OUTPUT: 100 mL via Ryan catheter. ESTIMATED BLOOD LOSS: 500 mL. COMPLICATIONS: None. ANTIBIOTICS GIVEN: 2 grams of Ancef. DETAILED PROCEDURE DESCRIPTION: The risks, benefits, indications, and alternatives of the procedure were reviewed with the patient and informed consent was obtained. The patient was taken to the operating room where spinal anesthesia was obtained without difficulty. She was then prepped and draped in the usual sterile fashion in the dorsal supine position. A surgical time-out was performed in which the patient's identity and planned procedure were verified with the operative team. A Ryan catheter had previously been placed to drain the bladder. A Pfannenstiel skin incision was then made with a scalpel and carried through to the underlying layer of fascia using the Bovie electrocautery. The fascia was incised in the midline, and the incision was extended laterally with Soliman scissors. The superior aspect of the fascial incision was grasped with Asa clamps, elevated and the underlying rectus muscles were dissected off with a scalpel. Attention was then turned to the inferior aspect of this incision, which in a similar fashion was grasped, tented up with Asa clamps, and the rectus muscles were dissected off with Soliman scissors. The rectus muscles were then at the midline and the peritoneum was identified and entered digitally. The peritoneal incision was then extended horizontally and superiorly with good visualization of the bladder. A bladder blade was then inserted into the abdomen. The vesicouterine peritoneum was then identified and entered sharply with scalpel. This incision was then extended laterally, and the bladder flap was created digitally. Next, the lower uterine segment was incised in a transverse fashion with the scalpel. The uterine incision was then extended manually. The amniotic sac was artificially ruptured, and it was productive of clear fluid. The infant was found in footling breech presentation. The 's feet were then grasped and delivered through the hysterotomy up to the level of the shoulders. Using the Lovset maneuver, the 's shoulders and arms were then delivered. The head was then delivered by maintaining flexion throughout via the [id number]-Urpbnss-Jvha maneuver. The entire baby delivered atraumatically through the hysterotomy site. The nose and mouth were then suctioned with a bulb syringe, and the cord was doubly clamped and cut. The infant was handed off to the awaiting pediatricians. Cord gases were obtained. The placenta was then removed manually. The uterus was then exteriorized and cleared of all clots and debris. The uterine incision was then repaired with #0 Monocryl suture in a running locked fashion. A second layer of #0 Monocryl was then used to imbricate the hysterotomy in a vertical fashion. The posterior cul-de-sac was then irrigated. The uterus was returned to the abdomen. The hysterotomy was inspected. There was scant oozing blood noted at the left lateral aspect of the incision, which was controlled with a [id number]-vi-[id number] suture of #3-0 Vicryl. The paracolic gutters were then inspected and cleared of all clots and debris. Inspection of the hysterotomy again revealed excellent hemostasis. There was scant oozing down by the bladder flap and John Paul was then applied to the hysterotomy and bladder flap. The bladder blade was then removed from the abdomen. The peritoneum was then closed with #3-0 Vicryl suture in a running fashion. The fascia was then closed with #0 Vicryl suture in a running fashion. The subcutaneous fat was then closed with #3-0 Vicryl suture in a running fashion. The skin was then closed with #4-0 Monocryl suture in a subcuticular fashion. The incision was then dressed with Steri-Strips and a pressure dressing was applied. At the completion of the case, a bimanual exam was performed which revealed good uterine tone and minimal vaginal bleeding. The patient tolerated the procedure well. Sponge, lap, instrument and needle counts were correct times three. The patient was taken to the recovery room in stable condition. scores were 8 and 9, weight was 10 pounds 4 ounces or 4650 grams and it was a female infant. [facility]
[2018-12-09 18:05] VITALS: BP_SYST 107; BP_SYST 117; BP_DIAS 55; BP_DIAS 57
[2018-12-09] MEDS: PERCOCET 5MG/325MG TAB PO PRN (18:58)
[2018-12-09 22:34] VITALS: BP 105/55
[2018-12-10 02:32] VITALS: BP 103/56
[2018-12-10] MEDS: IBUPROFEN 800 MG TAB PO SCH (03:59)
[2018-12-10 06:31] VITALS: BP 102/59
--- NOTE | 2018-12-10 08:43 | DS.PDOC ---
Discharge Summary General Date of Admission Dec 08, 2018 at 06:53 Date of Discharge Dec 10, 2018 Discharge Summary HOSPITAL COURSE: Ms. Paredes is a 33 yo G5 now P4 who underwent an uncomplicated scheduled PLTCS on [id number] for breech presentation s/p failed ECV attempt one week prior. Her course has been unremarkable. On her day of discharge she met all appropriate discharge criteria. She was ambulating, voiding, tolerating a regular diet, had minimal lochia, and had minimal pain that was controlled with PO pain medications. DISCHARGE MEDICATIONS: Please see below. ALLERGIES: Please see below. PHYSICAL EXAMINATION ON DISCHARGE: VITAL SIGNS: Please see below. GENERAL: AAOX3, sitting up in bed, NAD ABDOMINAL EXAMINATION: Fundus firm at U-2. No fundal tenderness. Incision clean/dry/intact. Steri strips in place. No tenderness to palpation. EXTREMITIES: No edema PSYCHIATRIC EXAMINATION: Affect appropriate ACTIVITY: Pelvic rest for 6 weeks. No lifting >10pounds for 6 weeks. DIET: Regular DISCHARGE PLAN: Discharge home on 10Dec2018 DISPOSITION: DC home. DISCHARGE INSTRUCTIONS: 1. Pelvic rest for 6 weeks. 2. No heavy lifting. 3. incision check in two weeks ITEMS TO FOLLOWUP ON ON OUTPATIENT: 1. Incision check in 2 weeks DISCHARGE CONDITION: Stable. TIME SPENT ON DISCHARGE: Greater than 20 minutes. Betsy Parra DO Vital Signs/I&Os Vital Signs Date Time Temp Pulse Resp B/P (MAP) Pulse Ox O2 Delivery O2 Flow Rate FiO2 12/10/18 06:31 97.0 55 18 102/59 (73) 12/09/18 14:09 97 I&O- Last 24 Hours up to 6 AM 12/10/18 06:00 Output Total 600 ml Balance -600 ml Discharge Medications Scheduled 21/Iron Fu/Folic Acid ( Complete [place]) 1 Tab Tab, 1 TAB PO DAILY, (Reported) Allergies Coded Allergies: No Known Allergies (Unverified , 01/25/18) BETSY PARRA DO Dec 10, 2018 08:43
[2018-12-10 10:00] VITALS: BP 137/99
[2018-12-10] MEDS ORDERED: COLA100C5 PO (10:15)
[2018-12-10] MEDS ORDERED: OXYC1TAB23 PO (10:15)
[2018-12-10] MEDS ORDERED: IBUP200C33 PO (10:15)
[2018-12-10] MEDS: PRENATAL VITAMINS CHEWABLE TABLET PO SCH (11:32)
[2018-12-10] MEDS: PERCOCET 5MG/325MG TAB PO PRN (11:33)
== END 2018-12-10 13:30 | disposition home or self-care (01) | DRG 773 ==
LOC: M LDI 06:53 → M OBS 14:21
PROVIDERS: ADMIT Obstetrics & Gynecology; ATTEND Obstetrics & Gynecology
PROC: 10D00Z1 Extraction of Products of Conception, Low, Open Approach (ICD-10-PCS; principal; 2018-12-08 09:30)
DX: O32.1XX0 Maternal care for breech presentation, not applicable or unspecified (principal); Z37.0 Single live birth; Z3A.39 39 weeks gestation of pregnancy